=== PATIENT | male | born 1975 | race Caucasian/White ===

== ENCOUNTER 2018-02-09 12:59 | Inpatient (IN) | payer BC ==
[~2018-02-09] VITALS: Ht 188 cm; Wt 100.2 kg
--- NOTE | ~2018-02-09 | P ---
[facility] [address] [place] [address] PROCEDURE REPORT Name: KWAKU LAZAR Room #: 356-P [facility] IN M.R.#: [id number] Admission: 02/09/18 Attend Phys: Isidoro Bunch MD Discharge: Date of : 79 Report #: [id number] THIS REPORT FOR: //name// CC: Panda Bunch BRIEF HISTORY: The patient is a 42-year-old male who presented to [facility] with hematemesis and black stools. He has a history of alcohol abuse and several failed sessions at alcohol rehab. He has been drinking heavily recently on a trip to [place] to [place]clusive resort and returned to [place] with complaints of hematemesis and black stools. He also has had orange urine consistent with jaundice. PREOPERATIVE DIAGNOSIS: Upper gastrointestinal bleeding. POSTOPERATIVE DIAGNOSES: 1. Severe esophagitis, nonbleeding. 2. Grade 1 esophageal varices. 3. Small hiatus hernia. 4. Diffuse gastritis, possibly alcohol-induced gastritis. MEDICATIONS: Deep sedation with propofol per anesthesia. SPECIMEN: Biopsies of gastritis. ESTIMATED BLOOD LOSS: 3 mL. PROCEDURE: EGD with biopsy. FINDINGS: Prior to propofol sedation, the procedure of EGD and potential banding of varices were discussed with the patient as well as potential risks, benefits, and complications. He indicates he understands and desires to proceed. With the patient in left lateral decubitus position, the Fuji video endoscope was inserted in the cervical esophagus under direct vision without difficulty. Examination of this organ through its entire length revealed normal esophageal mucosa in the proximal esophagus, distally long erosive columns were extending up from the squamocolumnar junction consistent with severe erosive esophagitis. Active bleeding was not seen at this point in time. In addition, in the distal esophagus, grade 1 varices were seen, stigmata of bleeding was not seen. These varices are too small for banding. A small hiatus hernia was seen. The scope was advanced into the stomach, was examined on end view as well as retroflexed views. There was some fluid in the stomach and this was aspirated away. There was no blood in the stomach. Obvious gastric varices were not seen. There was diffuse erythema and edema in the entire stomach, but no bleeding was encountered. Stomach was examined on end view as well as retroflexed views. [address] [address] PROCEDURE REPORT Name: KWAKU LAZAR Room #: 356-P [facility] IN .R.#: [id number] Admission: 02/09/18 Attend Phys: Isidoro Bunch MD Discharge: Date of : 79 Report #: [id number] Multiple biopsies were obtained to evaluate for gastritis and H. pylori. The pylorus, duodenal bulb and postbulbar duodenal sweep were inspected and noted to be unremarkable. At that point, the scope was slowly withdrawn and careful circumferential views confirmed the above findings. The patient tolerated the procedure well. DISPOSITION: The patient with hematemesis and melena. He has severe esophagitis, which may have been the source of blood loss. An active bleeding site was not identified today. He does have varices, but they are at this point grade 1 and unlikely source of bleeding. We will continue PPI therapy. Again discussed with the patient his need to discontinue alcohol and consider rehab, although he has failed several times. With regards to his jaundice, continue to monitor liver function studies. He may be a candidate for steroids for his liver disease. <ELECTRONICALLY SIGNED> By: Saul Hilario MD 02/10/18 2032 1604 1843 Saul Hilario MD /nt
--- NOTE | ~2018-02-09 | S ---
[facility] [place] [address] [place] [address] SURGICAL PATH RPT PROCEDURE Name: KWAKU MOSCOSO Room #: 356-P ADM IN M.R.#: [id number] Admission: 02/09/18 Date of : 79 Discharge: Report #: [id number] Path Case #: [id number] PATHOLOGY REPORT COLLECTION DATE: 02/10/2018 RECEIVED DATE: 02/11/2018 SUBMITTING PHYS: Dr. Saul Hilario OTHER PHYS: Dr. Panda Bunch SPECIMEN(S) RECEIVED: A.Bx gastritis * * * * * * * * * * * * FINAL DIAGNOSIS: "BX gastritis", biopsy: - Gastric mucosa with mild reactive / regenerative changes and mild chronic inflammation. - Negative H. pylori immunohistochemical stain (block A1); control reacted appropriately. (CLW:pit; 02/12/2018) PATHOLOGIST: Duyen Gold M.D. REPORT ELECTRONICALLY SIGNED BY: Duyen Gold M.D. DATE/TIME: 02/12/2018 13:43 * * * * * * * * * * * * GROSS PATHOLOGY: Received in formalin labeled "Kwaku Moscoso BX gastritis" and consists of several soft sinha tissue fragments aggregating to 0.4 x 0.3 x 0.2 cm which are entirely submitted as A1. (GARCIA; 02/11/2018) CLINICAL HISTORY: Abdominal pain, GI bleed, severe esophagitis, gastritis, hiatal hernia, esophageal varices INITIAL CPT CODE(S): A; 97112, 54716 Professional services performed by [facility] at [facility] [address], [place] [address] Technical services performed by [facility] at [address] [place] [address] [address] [address]. [facility] [address] [place] [address] SURGICAL PATH RPT PROCEDURE Name: KWAKU MOSCOSO Room #: 356-P ADM IN M.R.#: [id number] Admission: 02/09/18 Date of : 79 Discharge: Report #: [id number] Path Case #: [id number] [facility] [address] [address] PHONE: [phone] DIRECTOR: Gerald Samayoa M.D. * * * END OF REPORT * * *
--- NOTE | ~2018-02-09 | EKG ---
[place] [address] [facility] [place] [address] ELECTROCARDIOGRAM REPORT Name: KWAKU LAZAR Room #: 356-P ADM IN M.R.#: [id number] Admission: 02/09/18 Attend Phys: Isidoro Bunch MD Discharge: Date of : 79 Report #: [id number] THIS REPORT FOR: //name// [facility] ED Test Date: 2018-02-09 Test Time: 14:29:59 Pat Name: KWAKU LAZAR Department: Room: 356 Gender: M Design Checker: RILEY : 1975 Requested By: Gavin Drake Order Number: [id number] MD: Brandon Becker Measurements Intervals [place] Rate: 115 P: 7 NM: 162 QRS: -35 QRSD: 102 T: 63 QT: 344 QTc: 476 Interpretive Statements Sinus tachycardia Left axis deviation RSR' in V1 or V2, probably normal variant Nonspecific T wave abnormality Borderline prolonged QT interval No previous ECG available for comparison Electronically Signed On 02-10-2018 9:41:59 CDT by Brandon Becker [email or web address] <ELECTRONICALLY SIGNED> By: Brandon Becker MD, [facility] 02/10/18 0941 1429 1429 Brandon Becker MD, [facility] /EPI
[2018-02-09 13:13] VITALS: BP 119/68
[2018-02-09] MEDS ORDERED: ZANTAC 7575 MG (13:38)
[2018-02-09 13:39] LABS: ABSOLUTE NEUTROPHILS 11.5 thou/uL (1.4-8.2); BASOPHILS 0.6 % (0.0-2.0); EOSINOPHILS 0.1 % (0.0-3.0); HEMATOCRIT 29.7 % (42.0-52.0); HEMOGLOBIN 10.5 gm/dL (14.0-18.0); LYMPHOCYTES 9.7 % (24.0-44.0); MCH 35.9 pg (26.0-34.0); MCHC 35.3 g/dL (28.0-37.0); MCV 101.9 fL (80.0-100.0); MONOCYTES 9.1 % (1.0-8.0); PLATELET COUNT 214 thou/uL (150-400); POLYS 80.5 % (36.0-66.0); RBC 2.92 mil/uL (4.50-6.00); RDW 13.2 % (10.5-14.5); WBC 14.3 thou/uL (4.0-11.0)
[2018-02-09 13:46] LABS: ANION GAP 9 mmol/L (7-16); BUN 11 mg/dL (7-18); CALCIUM 8.2 mg/dL (8.5-10.1); CHLORIDE 88 mmol/L (98-107); CO2 30 mmol/L (21-32); CREATININE 0.6 mg/dL (0.7-1.3); GLUCOSE 119 mg/dL (74-106); SODIUM 127 mmol/L (136-145)
[2018-02-09 13:53] LABS: APTT 34.2 Seconds (24.5-32.8); INR 1.5; PROTIME 15.1 Seconds (9.3-11.4)
[2018-02-09 13:55] LABS: ALBUMIN 2.6 g/dL (3.4-5.0); DIRECT BILIRUBIN 3.4 mg/dL (<0.1-0.3); LIPASE 146 U/L (73-393); SGOT 228 U/L (15-37); SGPT 66 U/L (30-65); TOTAL BILIRUBIN 4.9 mg/dL (<0.1-1.0); TOTAL PROTEIN 7.1 g/dL (6.4-8.2); TROPONIN-I < 0.04 ng/mL (<0.06)
[2018-02-09 13:56] LABS: POTASSIUM 2.9 mmol/L (3.5-5.1)
[2018-02-09 17:16] LABS: CALCIUM 8.4 mg/dL (8.5-10.1); CREATININE 0.7 mg/dL (0.7-1.3)
[2018-02-09 17:18] LABS: ALBUMIN 2.5 g/dL (3.4-5.0); MAGNESIUM 1.5 mg/dL (1.8-2.4); PHOSPHORUS 2.2 mg/dL (2.5-4.9); TOTAL BILIRUBIN 4.6 mg/dL (<0.1-1.0); TOTAL PROTEIN 6.9 g/dL (6.4-8.2)
[2018-02-09 17:19] LABS: POTASSIUM 2.8 mmol/L (3.5-5.1)
[2018-02-09 17:41] LABS: FOLIC ACID 4.1 ng/mL (8.6-58.9)
[2018-02-09 17:47] VITALS: BP 126/68
[2018-02-09 18:58] VITALS: BP 131/72
[2018-02-09 19:00] VITALS: BP 127/74
[2018-02-09 23:40] VITALS: BP 119/69
[2018-02-10 04:30] VITALS: BP 123/70
[2018-02-10 04:40] LABS: HEMATOCRIT 25.7 % (42.0-52.0); MCH 36.2 pg (26.0-34.0); MCHC 35.1 g/dL (28.0-37.0); MCV 103.2 fL (80.0-100.0); RBC 2.49 mil/uL (4.50-6.00); RDW 13.1 % (10.5-14.5); WBC 11.3 thou/uL (4.0-11.0)
[2018-02-10 04:49] LABS: CALCIUM 7.9 mg/dL (8.5-10.1); CREATININE 0.5 mg/dL (0.7-1.3); MAGNESIUM 1.6 mg/dL (1.8-2.4); POTASSIUM 3.4 mmol/L (3.5-5.1)
[2018-02-10 08:27] VITALS: BP 119/73
[2018-02-10 08:53] LABS: AMP/METHAMP Negative (Negative); BARBITURATES Negative (Negative); BENZODIAZEPINES Negative (Negative); COCAINE Negative (Negative); METHADONE Negative (Negative); OPIATES Negative (Negative); PCP Negative (Negative)
[2018-02-10 12:17] VITALS: BP 119/76
[2018-02-10 14:43] LABS: ALBUMIN 2.4 g/dL (3.4-5.0); TOTAL BILIRUBIN 5.8 mg/dL (<0.1-1.0)
[2018-02-10 14:44] LABS: TOTAL PROTEIN 6.4 g/dL (6.4-8.2)
[2018-02-10 17:26] VITALS: BP 98/68
[2018-02-10 19:27] VITALS: BP 121/67
[2018-02-11 00:05] VITALS: BP 92/62
[2018-02-11 03:12] VITALS: BP 112/70
[2018-02-11 06:53] LABS: HEMATOCRIT 24.7 % (42.0-52.0); HEMOGLOBIN 8.7 gm/dL (14.0-18.0); MCH 36.7 pg (26.0-34.0); MCHC 35.4 g/dL (28.0-37.0); MCV 103.6 fL (80.0-100.0); RBC 2.38 mil/uL (4.50-6.00); RDW 13.1 % (10.5-14.5); WBC 8.7 thou/uL (4.0-11.0)
[2018-02-11 07:08] LABS: CALCIUM 8.3 mg/dL (8.5-10.1); CREATININE 0.6 mg/dL (0.7-1.3); MAGNESIUM 1.8 mg/dL (1.8-2.4); PHOSPHORUS 2.7 mg/dL (2.5-4.9)
[2018-02-11 07:36] VITALS: BP 113/70
[2018-02-11 12:08] VITALS: BP 117/71
[2018-02-11 14:31] LABS: INR 1.4; PROTIME 14.1 Seconds (9.3-11.4)
[2018-02-11 14:35] LABS: % SATURATION 27 % (20-39); IRON 32 ug/dL (65-175); TIBC 117 ug/dL (250-450)
[2018-02-11 16:05] VITALS: BP 119/78
[2018-02-11 19:26] VITALS: BP 111/58
[2018-02-12 00:06] LABS: HAV IgM AB (ANTI-HAV IgM) Negative (Negative); HEPATITIS B SURFACE AG Negative (Negative); HEPATITIS C VIRUS AB <0.1 (0.0-0.9)
[2018-02-12 04:35] VITALS: BP 133/79
[2018-02-12 07:08] LABS: HEMOGLOBIN 8.1 gm/dL (14.0-18.0); MCH 36.9 pg (26.0-34.0); MCHC 35.3 g/dL (28.0-37.0); MCV 104.7 fL (80.0-100.0); RBC 2.2 mil/uL (4.50-6.00); RDW 13.5 % (10.5-14.5); WBC 8.7 thou/uL (4.0-11.0)
[2018-02-12 07:18] LABS: CREATININE 0.6 mg/dL (0.7-1.3); MAGNESIUM 1.7 mg/dL (1.8-2.4); POTASSIUM 3.7 mmol/L (3.5-5.1)
[2018-02-12 08:23] VITALS: BP 109/55
[2018-02-12 08:54] LABS: ALBUMIN 2.3 g/dL (3.4-5.0); DIRECT BILIRUBIN 5.2 mg/dL (<0.1-0.3); TOTAL BILIRUBIN 6.3 mg/dL (<0.1-1.0)
[2018-02-12 09:28] LABS: TOTAL PROTEIN 7.1 g/dL (6.4-8.2)
[2018-02-12 09:49] LABS: INR 1.5; PROTIME 15.3 Seconds (9.3-11.4)
[2018-02-12 12:04] VITALS: BP 112/52
[2018-02-12] MEDS ORDERED: EFFEXOR XR75 MG PO (13:09)
[2018-02-12] MEDS ORDERED: NEURONTIN 300300 M1 PO (13:09)
[2018-02-12] MEDS ORDERED: FOLIC ACID1 MG PO (13:09)
[2018-02-12] MEDS ORDERED: PROTONIX40 M1 PO (13:09)
[2018-02-12] MEDS ORDERED: PEPCID20 MG PO (13:09)
[2018-02-12] MEDS ORDERED: VITAMIN B-1100 M2 PO (13:09)
[2018-02-12 14:13] VITALS: BP 112/52
[2018-02-12 16:38] LABS: HEMATOCRIT 23.4 % (42.0-52.0); HEMOGLOBIN 8.3 gm/dL (14.0-18.0); MCH 36.8 pg (26.0-34.0); MCHC 35.3 g/dL (28.0-37.0); MCV 104.2 fL (80.0-100.0); RBC 2.24 mil/uL (4.50-6.00); RDW 13.7 % (10.5-14.5); WBC 8.4 thou/uL (4.0-11.0)
[2018-02-12 16:53] LABS: ALBUMIN 2.3 g/dL (3.4-5.0); CREATININE 0.6 mg/dL (0.7-1.3); POTASSIUM 3.4 mmol/L (3.5-5.1); TOTAL BILIRUBIN 5.8 mg/dL (<0.1-1.0); TOTAL PROTEIN 6.2 g/dL (6.4-8.2)
[2018-02-12 16:57] VITALS: BP 125/55
[2018-02-12 20:09] VITALS: BP 102/59
[2018-02-13 03:42] VITALS: BP 121/76
[2018-02-13 06:37] LABS: MCH 36.7 pg (26.0-34.0); MCHC 34.8 g/dL (28.0-37.0); MCV 105.7 fL (80.0-100.0); RBC 2.17 mil/uL (4.50-6.00); RDW 13.6 % (10.5-14.5); WBC 8.4 thou/uL (4.0-11.0)
[2018-02-13 06:47] LABS: INR 1.6; PROTIME 16.1 Seconds (9.3-11.4)
[2018-02-13 06:56] LABS: ALBUMIN 2.3 g/dL (3.4-5.0); CALCIUM 8.2 mg/dL (8.5-10.1); CREATININE 0.6 mg/dL (0.7-1.3); POTASSIUM 3.6 mmol/L (3.5-5.1); TOTAL BILIRUBIN 5.6 mg/dL (<0.1-1.0)
[2018-02-13 07:20] VITALS: BP 98/57
[2018-02-13 07:24] LABS: TOTAL PROTEIN 6.5 g/dL (6.4-8.2)
[2018-02-13 10:48] LABS: MAGNESIUM 1.7 mg/dL (1.8-2.4)
[2018-02-13 11:15] VITALS: BP 95/56
[2018-02-13 15:11] VITALS: BP 109/72
[2018-02-13 20:16] VITALS: BP 119/82
[2018-02-14 05:19] VITALS: BP 112/73
[2018-02-14 05:52] LABS: HEMATOCRIT 23.5 % (42.0-52.0); HEMOGLOBIN 8.3 gm/dL (14.0-18.0); MCH 36.8 pg (26.0-34.0); MCHC 35.2 g/dL (28.0-37.0); MCV 104.6 fL (80.0-100.0); RBC 2.25 mil/uL (4.50-6.00); RDW 14.3 % (10.5-14.5); WBC 9.4 thou/uL (4.0-11.0)
[2018-02-14 06:16] LABS: ALBUMIN 2.3 g/dL (3.4-5.0); DIRECT BILIRUBIN 4.2 mg/dL (<0.1-0.3)
[2018-02-14 06:17] LABS: ALBUMIN 2.3 g/dL (3.4-5.0); CALCIUM 8.2 mg/dL (8.5-10.1); CREATININE 0.7 mg/dL (0.7-1.3); POTASSIUM 3.6 mmol/L (3.5-5.1); TOTAL BILIRUBIN 4.9 mg/dL (<0.1-1.0)
[2018-02-14 06:20] LABS: INR 1.6; PROTIME 16.1 Seconds (9.3-11.4)
[2018-02-14 06:41] LABS: TOTAL PROTEIN 7.4 g/dL (6.4-8.2)
[2018-02-14 07:25] VITALS: BP 103/60
[2018-02-14 11:25] VITALS: BP 97/62
[2018-02-14 15:23] VITALS: BP 99/58
[2018-02-14 20:10] VITALS: BP 117/81
[2018-02-15 03:27] VITALS: BP 102/62
[2018-02-15 07:29] VITALS: BP 99/59
[2018-02-15 07:46] LABS: HEMATOCRIT 23.5 % (42.0-52.0); HEMOGLOBIN 8.1 gm/dL (14.0-18.0); MCH 36.2 pg (26.0-34.0); MCHC 34.6 g/dL (28.0-37.0); MCV 104.5 fL (80.0-100.0); RBC 2.25 mil/uL (4.50-6.00); RDW 14.4 % (10.5-14.5); WBC 9.5 thou/uL (4.0-11.0)
[2018-02-15 08:06] LABS: ALBUMIN 2.2 g/dL (3.4-5.0); CALCIUM 8.2 mg/dL (8.5-10.1); CREATININE 0.7 mg/dL (0.7-1.3); POTASSIUM 3.4 mmol/L (3.5-5.1); TOTAL BILIRUBIN 4.8 mg/dL (<0.1-1.0)
[2018-02-15 08:18] LABS: INR 1.5; PROTIME 14.8 Seconds (9.3-11.4)
[2018-02-15 08:19] LABS: TOTAL PROTEIN 6.9 g/dL (6.4-8.2)
[2018-02-15 12:10] VITALS: BP 97/58
[2018-02-15 15:30] VITALS: BP 101/56
[2018-02-15 20:06] VITALS: BP 123/76
[2018-02-16 04:00] VITALS: BP 119/71
[2018-02-16 06:01] LABS: INR 1.4; PROTIME 14.7 Seconds (9.3-11.4)
[2018-02-16 06:11] LABS: CALCIUM 8.1 mg/dL (8.5-10.1); CREATININE 0.7 mg/dL (0.7-1.3); MAGNESIUM 2.1 mg/dL (1.8-2.4); POTASSIUM 3.5 mmol/L (3.5-5.1)
[2018-02-16 07:20] VITALS: BP 125/77
[2018-02-16 08:23] LABS: ALBUMIN 2.2 g/dL (3.4-5.0); DIRECT BILIRUBIN 3.1 mg/dL (<0.1-0.3); TOTAL BILIRUBIN 4.1 mg/dL (<0.1-1.0)
[2018-02-16 08:25] LABS: TOTAL PROTEIN 6.3 g/dL (6.4-8.2)
[2018-02-16] MEDS ORDERED: NEURONTIN250 MG/5 M PO (13:40)
[2018-02-16] MEDS ORDERED: VITAMIN B-1100 M2 PO (13:45)
[2018-02-16] MEDS ORDERED: EFFEXOR XR75 MG PO (13:45)
== END 2018-02-16 14:28 | disposition home or self-care (01) | DRG 378 ==
LOC: ER 12:59 → EROBS 14:27 → 3W 18:56 → ENTRNSPT 02-16 14:03 → EDTRNSPTSTS 02-16 14:05 → 3W 02-16 14:28
PROVIDERS: Emergency Medicine; Internal Medicine; Nurse Practitioner
PROC: 0DB68ZX Excision of Stomach, Via Natural or Artificial Opening Endoscopic, Diagnostic (ICD-10-PCS; principal; 2018-02-10)
DX: K29.71 Gastritis, unspecified, with bleeding (principal); D62 Acute posthemorrhagic anemia; D68.9 Coagulation defect, unspecified; E87.1 Hypo-osmolality and hyponatremia; F10.239 Alcohol dependence with withdrawal, unspecified; K44.9 Diaphragmatic hernia without obstruction or gangrene; K20.9 Esophagitis, unspecified; I10 Essential (primary) hypertension; I85.00 Esophageal varices without bleeding; E86.0 Dehydration; E87.6 Hypokalemia; D72.829 Elevated white blood cell count, unspecified; K70.10 Alcoholic hepatitis without ascites; F32.9 Major depressive disorder, single episode, unspecified; F10.229 Alcohol dependence with intoxication, unspecified; K76.0 Fatty (change of) liver, not elsewhere classified; F41.9 Anxiety disorder, unspecified; K21.9 Gastro-esophageal reflux disease without esophagitis; E53.8 Deficiency of other specified B group vitamins; Z87.891 Personal history of nicotine dependence
CPT/HCPCS: 10779; 62110; 62900; 70005

== ENCOUNTER 2018-10-28 10:06 | Emergency (ER) | payer BC ==
[~2018-10-28] VITALS: Ht 188 cm; Wt 86.2 kg
--- NOTE | ~2018-10-28 | EKG ---
[place] [address] [address] [place] [address] ELECTROCARDIOGRAM REPORT Name: KWAKU LAZAR [id number] Admission: 10/28/18 Attend Phys: Discharge: 10/28/18 Date of : 79 Report #: [id number] THIS REPORT FOR: //name// [facility] ED Test Date: 2018-10-28 Test Time: 10:09:58 Pat Name: KWAKU LAZAR Department: Room: Gender: Communications Systems Engineer: DENISFran : 1975 Requested By: Jesus Quintana Order Number: [id number] MD: Brandon Becker Measurements Intervals [place] Rate: 74 P: 30 UT: 180 QRS: -41 QRSD: 105 T: 41 QT: 408 QTc: 453 Interpretive Statements Sinus rhythm Left anterior fascicular block Compared to ECG 02/09/2018 14:29:59 Sinus tachycardia no longer present Electronically Signed On 10-29-2018 8:21:57 UNDERTAKER HELPER by Brandon Becker [email or web address] <ELECTRONICALLY SIGNED> By: Brandon Becker MD, [facility] 10/29/18 0821 1009 1009 Brandon Becker MD, [facility] /EPI
[~2018-10-28 10:06] MED LIST: EFFEXOR XR75 MG PO; FOLIC ACID1 MG PO; NEURONTIN 300300 M1 PO; NEURONTIN250 MG/5 M PO; PEPCID20 MG PO; PROTONIX40 M1 PO; VITAMIN B-1100 M2 PO; ZANTAC 7575 MG
[2018-10-28 10:46] LABS: ANION GAP 11 mmol/L (7-16); BUN 3 mg/dL (7-18); CALCIUM 8.1 mg/dL (8.5-10.1); CHLORIDE 104 mmol/L (98-107); CO2 23 mmol/L (21-32); CREATININE 0.5 mg/dL (0.7-1.3); GLUCOSE 105 mg/dL (74-106); SODIUM 138 mmol/L (136-145)
[2018-10-28 10:47] LABS: POTASSIUM 4.1 mmol/L (3.5-5.1)
[2018-10-28] MEDS ORDERED: PROPRANOLOL 1010 MG PO (10:50)
[2018-10-28] MEDS ORDERED: VISTARIL 25 MG25 M1 PO (10:50)
[2018-10-28] MEDS ORDERED: TRAZODONE HCL100 MG PO (10:51)
[2018-10-28 10:54] LABS: ALBUMIN 2.6 g/dL (3.4-5.0); LIPASE 556 U/L (73-393); MAGNESIUM 1.7 mg/dL (1.8-2.4); SGOT 197 U/L (15-37); SGPT 34 U/L (30-65); TOTAL BILIRUBIN 3.3 mg/dL (<0.1-1.0); TOTAL PROTEIN 8.3 g/dL (6.4-8.2); TROPONIN-I <0.06 ng/mL (<0.06)
[2018-10-28 11:06] LABS: HEMOGLOBIN 9.1 gm/dL (14.0-18.0)
[2018-10-28 11:08] LABS: HEMATOCRIT 27.9 % (42.0-52.0); MCHC 32.8 g/dL (28.0-37.0); MCV 82.2 fL (80.0-100.0); PLATELET COUNT 164 thou/uL (150-400); RBC 3.39 mil/uL (4.50-6.00); RDW 22.7 % (10.5-14.5); WBC 8.6 thou/uL (4.0-11.0)
[2018-10-28 11:17] LABS: AMP/METHAMP Negative (Negative); BARBITURATES Negative (Negative); BENZODIAZEPINES Negative (Negative); COCAINE Negative (Negative); METHADONE Negative (Negative); OPIATES POSITIVE (Negative); PCP Negative (Negative)
[2018-10-28] MEDS ORDERED: VOLTAREN GEL 1100 G2 TOP (11:40)
[2018-10-28 11:46] VITALS: BP 94/55
[2018-10-28 13:30] LABS: ABSOLUTE NEUTROPHILS 6.1 thou/uL (1.4-8.2)
[2018-10-28 13:31] LABS: ANISOCYTOSIS 2+; HYPOCHROMASIA 1+; TARGET CELLS OCCASIONAL
== END 2018-10-28 11:46 | disposition home or self-care (01) ==
LOC: ER 10:06
PROVIDERS: Physician Assistant
DX: R07.89 Other chest pain (principal); R74.0 Nonspecific elevation of levels of transaminase and lactic acid dehydrogenase [LDH]; F10.10 Alcohol abuse, uncomplicated; Y90.9 Presence of alcohol in blood, level not specified; I10 Essential (primary) hypertension; F17.210 Nicotine dependence, cigarettes, uncomplicated

== ENCOUNTER 2018-10-31 06:01 | Inpatient (IN) | payer BC ==
[2018-10-31] VITALS (17 sets, daily range): BP systolic 84–113; BP diastolic 43–68
[~2018-10-31] VITALS: Ht 188 cm; Wt 91.2 kg
--- NOTE | ~2018-10-31 | EKG ---
[address] [address] ELECTROCARDIOGRAM REPORT Name: KWAKU LAZAR Room #: 243-P ADM IN M.R.#: [id number] Admission: 10/31/18 Attend Phys: Emmett Garcia MD Discharge: Date of : 79 Report #: [id number] THIS REPORT FOR: //name// [facility] ED Test Date: 2018-10-31 Test Time: 06:29:57 Pat Name: KWAKU LAZAR Department: Room: 243 Gender: M Personalized Living Manager: MANSI : 1975 Requested By: Kiana Loza Order Number: [id number] MD: Randy Liu Measurements Intervals [place] Rate: 93 P: -87 MD: 123 QRS: -39 QRSD: 99 T: 64 QT: 372 QTc: 463 Interpretive Statements Ectopic atrial rhythm Left axis deviation Abnormal R-wave progression, late transition Compared to ECG 10/28/2018 10:09:58 Ectopic atrial rhythm now present Left-axis deviation now present Electronically Signed On 11-02-2018 11:02:51 USER INTERFACE ARTIST by Randy Liu [email or web address] <ELECTRONICALLY SIGNED> By: Randy Liu MD 11/02/18 1102 0629 0629 Ranyd Liu MD /EPI
[~2018-10-31 06:01] MED LIST changes: +PROPRANOLOL 1010 MG PO; +TRAZODONE HCL100 MG PO; +VISTARIL 25 MG25 M1 PO; +VOLTAREN GEL 1100 G2 TOP
[2018-10-31] MEDS ORDERED: CARAFATE 1 GM TA1 G1 PO (06:11)
[2018-10-31 06:26] LABS: HEMATOCRIT 21.9 % (42.0-52.0)
[2018-10-31 06:28] LABS: POC CREATININE 0.8 mg/dL (0.6-1.3); POC HEMOGLOBIN 8.2 g/dL (14.0-18.0)
[2018-10-31 06:28] LABS: ABSOLUTE NEUTROPHILS 8.3 thou/uL (1.4-8.2); BASOPHILS 3.5 % (0.0-2.0); EOSINOPHILS 1.5 % (0.0-3.0); HEMOGLOBIN 6.8 gm/dL (14.0-18.0); LYMPHOCYTES 22.6 % (24.0-44.0); MCH 26.5 pg (26.0-34.0); MCHC 31.2 g/dL (28.0-37.0); MCV 84.8 fL (80.0-100.0); MONOCYTES 8.2 % (1.0-8.0); PLATELET COUNT 164 thou/uL (150-400); POLYS 64.2 % (36.0-66.0); RBC 2.58 mil/uL (4.50-6.00); RDW 23.4 % (10.5-14.5)
[2018-10-31 06:30] LABS: ANION GAP 11 mmol/L (7-16); BUN 18 mg/dL (7-18); CALCIUM 7.9 mg/dL (8.5-10.1); CHLORIDE 105 mmol/L (98-107); CO2 23 mmol/L (21-32); CREATININE 0.7 mg/dL (0.7-1.3); SODIUM 139 mmol/L (136-145)
[2018-10-31 06:31] LABS: GLUCOSE 114 mg/dL (74-106)
[2018-10-31 06:36] LABS: APTT 28.9 Seconds (24.5-32.8); INR 1.7; PROTIME 18.1 Seconds (9.3-11.4)
[2018-10-31 06:38] LABS: ALBUMIN 2.1 g/dL (3.4-5.0); SGOT 113 U/L (15-37); SGPT 21 U/L (30-65); TOTAL BILIRUBIN 3.8 mg/dL (<0.1-1.0); TROPONIN-I <0.06 ng/mL (<0.06)
[2018-10-31 06:39] LABS: TOTAL PROTEIN 6.8 g/dL (6.4-8.2)
[2018-10-31 06:45] LABS: ANISOCYTOSIS 3+; MICROCYTES 1+
[2018-10-31 06:46] LABS: HYPOCHROMASIA 2+; POLYCHROMASIA 2+
[2018-10-31 10:01] LABS: HEMATOCRIT 20.8 % (42.0-52.0)
[2018-10-31 10:02] LABS: HEMOGLOBIN 6.8 gm/dL (14.0-18.0)
[2018-11-01] VITALS (35 sets, daily range): BP systolic 87–148; BP diastolic 39–87
[2018-11-01 04:16] LABS: WBC 4.8 thou/uL (4.0-11.0)
[2018-11-01 04:17] LABS: MCH 28.1 pg (26.0-34.0); MCHC 33.1 g/dL (28.0-37.0); MCV 85.1 fL (80.0-100.0); RBC 2.13 mil/uL (4.50-6.00); RDW 21.6 % (10.5-14.5)
[2018-11-01 04:33] LABS: CALCIUM 7.6 mg/dL (8.5-10.1); CREATININE 0.8 mg/dL (0.7-1.3); POTASSIUM 3.7 mmol/L (3.5-5.1)
[2018-11-01 05:45] LABS: HEMATOCRIT 18.1 % (42.0-52.0)
[2018-11-01 06:02] LABS: RBC 2.13 mil/uL (4.50-6.00)
[2018-11-01 06:03] LABS: MCH 27.8 pg (26.0-34.0); MCHC 32.6 g/dL (28.0-37.0); MCV 85.3 fL (80.0-100.0); RDW 21.9 % (10.5-14.5); WBC 4.5 thou/uL (4.0-11.0)
[2018-11-01 06:08] LABS: HEMATOCRIT 18.1 % (42.0-52.0); HEMOGLOBIN 5.9 gm/dL (14.0-18.0)
[2018-11-01 14:47] LABS: HEMATOCRIT 24.7 % (42.0-52.0); HEMOGLOBIN 8.3 gm/dL (14.0-18.0)
[2018-11-02] VITALS (50 sets, daily range): BP systolic 85–121; BP diastolic 33–75
[2018-11-02 04:16] LABS: INR 1.7; PROTIME 17.4 Seconds (9.3-11.4)
[2018-11-02 04:18] LABS: ALBUMIN 1.9 g/dL (3.4-5.0); CALCIUM 7.5 mg/dL (8.5-10.1); CREATININE 0.8 mg/dL (0.7-1.3); POTASSIUM 3.2 mmol/L (3.5-5.1); TOTAL BILIRUBIN 4.6 mg/dL (<0.1-1.0); TOTAL PROTEIN 6.1 g/dL (6.4-8.2)
[2018-11-02 04:26] LABS: HEMATOCRIT 23.3 % (42.0-52.0); HEMOGLOBIN 7.8 gm/dL (14.0-18.0); MCH 29.8 pg (26.0-34.0); MCHC 33.3 g/dL (28.0-37.0); MCV 89.3 fL (80.0-100.0); RBC 2.61 mil/uL (4.50-6.00); RDW 19.5 % (10.5-14.5); WBC 3.3 thou/uL (4.0-11.0)
[2018-11-03] VITALS (8 sets, daily range): BP systolic 118–150; BP diastolic 58–88
[2018-11-03 04:18] LABS: CALCIUM 7.4 mg/dL (8.5-10.1); CREATININE 0.6 mg/dL (0.7-1.3)
[2018-11-03 04:25] LABS: POTASSIUM 2.9 mmol/L (3.5-5.1)
[2018-11-03 04:51] LABS: HEMOGLOBIN 7.7 gm/dL (14.0-18.0); MCH 29.3 pg (26.0-34.0); MCHC 33.4 g/dL (28.0-37.0); MCV 87.8 fL (80.0-100.0); RBC 2.62 mil/uL (4.50-6.00); RDW 20.4 % (10.5-14.5); WBC 7.1 thou/uL (4.0-11.0)
[2018-11-03 12:06] LABS: HEMATOCRIT 24.6 % (42.0-52.0); MCH 29.2 pg (26.0-34.0); MCHC 32.6 g/dL (28.0-37.0); MCV 89.6 fL (80.0-100.0); RBC 2.74 mil/uL (4.50-6.00); WBC 7.9 thou/uL (4.0-11.0)
[2018-11-03 12:19] LABS: CALCIUM 7.8 mg/dL (8.5-10.1); CREATININE 0.7 mg/dL (0.7-1.3); POTASSIUM 3.6 mmol/L (3.5-5.1)
[2018-11-03 12:22] LABS: ALBUMIN 2.2 g/dL (3.4-5.0); TOTAL PROTEIN 6.6 g/dL (6.4-8.2)
[2018-11-03 12:23] LABS: DIRECT BILIRUBIN 3.5 mg/dL (<0.1-0.3); TOTAL BILIRUBIN 4.9 mg/dL (<0.1-1.0)
[2018-11-03] MEDS ORDERED: PROTONIX40 M1 PO (14:16)
== END 2018-11-03 14:50 | disposition home or self-care (01) | DRG 381 ==
LOC: ER 06:01 → EROBS 07:39 → ICU 07:39
PROVIDERS: Hospitalist; Internal Medicine; Internal Medicine Gastroenterology; Nurse Practitioner Family; Student in an Organized Health Care Education/Training Program
PROC: 30233N1 Transfusion of Nonautologous Red Blood Cells into Peripheral Vein, Percutaneous Approach (ICD-10-PCS; principal; 2018-10-31)
PROC: 3E1G88Z Irrigation of Upper GI using Irrigating Substance, Via Natural or Artificial Opening Endoscopic (ICD-10-PCS; principal; 2018-10-31)
DX: K22.11 Ulcer of esophagus with bleeding (principal); F10.239 Alcohol dependence with withdrawal, unspecified; K76.6 Portal hypertension; I85.10 Secondary esophageal varices without bleeding; D62 Acute posthemorrhagic anemia; I10 Essential (primary) hypertension; K31.89 Other diseases of stomach and duodenum; K44.9 Diaphragmatic hernia without obstruction or gangrene; Y90.7 Blood alcohol level of 200-239 mg/100 ml; F17.210 Nicotine dependence, cigarettes, uncomplicated; K70.30 Alcoholic cirrhosis of liver without ascites; Z79.899 Other long term (current) drug therapy
CPT/HCPCS: 10078; 10203; 62110; 62900; 70005

== ENCOUNTER 2019-03-23 21:53 | Inpatient (IN) | payer OTHER ==
[~2019-03-23] VITALS: Ht 188 cm; Wt 104.8 kg
[~2019-03-23 21:53] MED LIST changes: +CARAFATE 1 GM TA1 G1 PO
[2019-03-23 21:57] VITALS: BP 133/80
[2019-03-23] MEDS ORDERED: IRON325 PO (22:24)
[2019-03-23] MEDS ORDERED: POTASSIUM20 PO (22:24)
[2019-03-23] MEDS ORDERED: AZESCO TABLET1 EACH PO (22:25)
[2019-03-23] MEDS ORDERED: MAGOX 400400 MG PO (22:25)
[2019-03-23] MEDS ORDERED: REMERON15 M2 PO (22:26)
[2019-03-23 22:27] LABS: ABSOLUTE NEUTROPHILS 7.7 thou/uL (1.4-8.2); BASOPHILS 1.5 % (0.0-2.0); EOSINOPHILS 1.4 % (0.0-3.0); HEMATOCRIT 25.9 % (42.0-52.0); HEMOGLOBIN 8.7 gm/dL (14.0-18.0); LYMPHOCYTES 13.1 % (24.0-44.0); MCH 30.9 pg (26.0-34.0); MCHC 33.6 g/dL (28.0-37.0); MCV 92.1 fL (80.0-100.0); MONOCYTES 8.1 % (1.0-8.0); PLATELET COUNT 100 thou/uL (150-400); POLYS 75.9 % (36.0-66.0); RBC 2.81 mil/uL (4.50-6.00); RDW 22.8 % (10.5-14.5); WBC 10.2 thou/uL (4.0-11.0)
[2019-03-23 22:30] LABS: CALCIUM 7.8 mg/dL (8.5-10.1); CREATININE 0.7 mg/dL (0.7-1.3); POTASSIUM 3.5 mmol/L (3.5-5.1)
[2019-03-23 22:36] LABS: ALBUMIN 2.5 g/dL (3.4-5.0); DIRECT BILIRUBIN 2.1 mg/dL (<0.1-0.3); TOTAL BILIRUBIN 4.4 mg/dL (<0.1-1.0)
[2019-03-23 23:13] LABS: APTT 32.7 Seconds (24.5-32.8); INR 1.5; PROTIME 15.8 Seconds (9.3-11.4)
[2019-03-24] VITALS (7 sets, daily range): BP systolic 102–133; BP diastolic 49–82
[2019-03-24 02:09] LABS: URINE BILIRUBIN 2+ (Negative); URINE BLOOD 3+ (Negative); URINE CLARITY SL CLOUDY; URINE COLOR BROWN; URINE GLUCOSE-RANDOM* NEGATIVE (Negative); URINE KETONES TRACE (Negative); URINE LEUKOCYTES-REFLEX NEGATIVE (Negative); URINE NITRITE-REFLEX POSITIVE (Negative); URINE PROTEIN (DIPSTICK) 3+ (Negative)
[2019-03-24 02:16] LABS: SQUAMOUS 4-10 Moderate /LPF (0-3); URINE WBC-REFLEX 6-15 Few /HPF (0-5)
[2019-03-24 02:17] LABS: CASTS None Seen /LPF (None Seen); CRYSTALS None Seen /LPF (None Seen); MUCUS 0-3 Light strn/LPF (None Seen)
[2019-03-24 02:19] LABS: AMP/METHAMP Negative (Negative); BARBITURATES Negative (Negative); BENZODIAZEPINES Negative (Negative); COCAINE Negative (Negative); METHADONE Negative (Negative); OPIATES POSITIVE (Negative); PCP Negative (Negative)
[2019-03-24 05:49] LABS: MAGNESIUM 1.4 mg/dL (1.8-2.4)
[2019-03-24 06:22] LABS: HEMOGLOBIN 7.3 gm/dL (14.0-18.0)
[2019-03-24 06:23] LABS: FOLIC ACID 10.3 ng/mL (8.6-58.9)
[2019-03-25 04:13] VITALS: BP 125/46
[2019-03-25 05:33] LABS: HEMATOCRIT 20.4 % (42.0-52.0); HEMOGLOBIN 6.9 gm/dL (14.0-18.0)
[2019-03-25 07:14] VITALS: BP 111/53
[2019-03-25 10:59] VITALS: BP 117/54
[2019-03-25 13:54] VITALS: BP 125/72; BP 126/67
[2019-03-25 15:46] VITALS: BP 126/74
[2019-03-25 19:35] VITALS: BP 135/67
[2019-03-26 03:45] VITALS: BP 127/69
[2019-03-26 05:11] LABS: HEMATOCRIT 23.2 % (42.0-52.0); HEMOGLOBIN 7.7 gm/dL (14.0-18.0); MCH 31.5 pg (26.0-34.0); MCHC 33.2 g/dL (28.0-37.0); MCV 94.7 fL (80.0-100.0); RBC 2.45 mil/uL (4.50-6.00); RDW 22.6 % (10.5-14.5); WBC 4.6 thou/uL (4.0-11.0)
[2019-03-26 05:29] LABS: ALBUMIN 2.3 g/dL (3.4-5.0); CALCIUM 7.6 mg/dL (8.5-10.1); CREATININE 0.9 mg/dL (0.7-1.3); POTASSIUM 3.1 mmol/L (3.5-5.1); TOTAL BILIRUBIN 5.7 mg/dL (<0.1-1.0); TOTAL PROTEIN 6.1 g/dL (6.4-8.2)
[2019-03-26 07:29] VITALS: BP 120/64
[2019-03-26 11:10] VITALS: BP 133/83
[2019-03-26] MEDS ORDERED: TRAMADOL 50 MG50 MG PO (12:27)
[2019-03-26] MEDS ORDERED: ATIVAN1 MG PO (12:28)
[2019-03-26] MEDS ORDERED: LACTULOSE20 GM/30 M PO (12:28)
[2019-03-26 13:21] VITALS: BP 133/83
[2019-03-26 13:35] VITALS: BP 133/83
[2019-03-26 13:57] VITALS: BP 133/83
== END 2019-03-26 14:02 | disposition home or self-care (01) | DRG 368 ==
LOC: ER 21:53 → 3W 03-24 02:53 → EROBS 03-24 02:53 → 3W 03-24 03:28 → ENTRNSPT 03-26 13:50 → EDTRNSPTSTS 03-26 13:52 → 3W 03-26 14:02
PROVIDERS: Emergency Medicine; Nurse Practitioner; Nurse Practitioner Acute Care; ADMIT Internal Medicine
PROC: 0DJ08ZZ Inspection of Upper Intestinal Tract, Via Natural or Artificial Opening Endoscopic (ICD-10-PCS; principal; 2019-03-24)
PROC: 30233N1 Transfusion of Nonautologous Red Blood Cells into Peripheral Vein, Percutaneous Approach (ICD-10-PCS; 2019-03-25)
DX: I85.01 Esophageal varices with bleeding (principal); E43 Unspecified severe protein-calorie malnutrition; D68.9 Coagulation defect, unspecified; D62 Acute posthemorrhagic anemia; K76.6 Portal hypertension; E72.20 Disorder of urea cycle metabolism, unspecified; N39.0 Urinary tract infection, site not specified; K70.31 Alcoholic cirrhosis of liver with ascites; K70.10 Alcoholic hepatitis without ascites; I10 Essential (primary) hypertension; F10.129 Alcohol abuse with intoxication, unspecified; K40.90 Unilateral inguinal hernia, without obstruction or gangrene, not specified as recurrent; G89.29 Other chronic pain; K80.20 Calculus of gallbladder without cholecystitis without obstruction; E87.6 Hypokalemia; E83.42 Hypomagnesemia; F12.90 Cannabis use, unspecified, uncomplicated; K31.89 Other diseases of stomach and duodenum; Z79.899 Other long term (current) drug therapy; Z87.891 Personal history of nicotine dependence; Z83.79 Family history of other diseases of the digestive system; Z68.29 Body mass index [BMI] 29.0-29.9, adult; Z91.14 Patient's other noncompliance with medication regimen
CPT/HCPCS: 10879; 62110; 62900; 70005